=== PATIENT | male | born 2000 | race Two or more races ===

== ENCOUNTER → 2024-06-12 | Emergency (ER) | payer MEDICAID ==
[~2024-06-12] VITALS: Ht 167.6 cm; Wt 68.3 kg
[2024-06-12 16:39] VITALS: BP 122/67; PULSE 69; RESP 16; O2SAT 99
--- NOTE | 2024-06-12 18:15 | Physician Documentation ---
History of Present Illness ~ Chief Complaint: Eye Pain Stated Complaint: L EYE PAIN Time Seen by MD: 17:15 HPI Patient is seen today with complaints of pain in his left eye every states a piece of the nail or chunk of metal shot off and lodged into his left eye. Patient states it is quite painful. And irritating. Patient has no other concern or complaint at this time. Medication Reconciliation Allergies: Coded Allergies: No Known Allergies (Unverified , 06/12/24) Physical Exam Vital Signs: Temperature: 97.5, Heart Rate: 69, Respiratory Rate: 16, BP: 122/67, Pulse Oximetry: 99, Weight: 68.300 Procedures Eye Procedure Procedure Note Procedure note: Three drops of proparacaine were administered into the left eye with immediate relief of the pain. Patient maybe did have fluorescein stain applied and Wood's lamp used to appreciate corneal abrasion at the 12 o'clock position of the cornea. No foreign body appreciated at this time. Progress Results/Orders Results/Orders Orders - LICHA SILVERIO Proparacaine Ophth Solution (Alcaine Oph (06/12/24 18:10) Vital Signs 06/12/24 16:39 Temp 97.5 Pulse 69 Resp 16 B/P (MAP) 122/67 Pulse Ox 99 Medical Decision Making Findings Patient is seen today with complaints of pain in his left eye every states a piece of the nail or chunk of metal shot off and lodged into his left eye. Patient states it is quite painful. And irritating. Patient has no other concern or complaint at this time. Patient did have Wood's lamp with fluorescein stain exam performed today that did show corneal abrasion at the 12 o'clock position without foreign body present. Prescription of at neomycin polymyxin any dex ophthalmic drops pre scribed to patient to be used as indicated. Apply 2-3 drops into the left eye three to 4 times a day for seven days. Patient will return to ED with any worsening, concerning or changing symptoms. Departure Disposition: 01 HOME / SELF CARE / HOMELESS Impression: Primary Impression: Corneal abrasion Qualified Codes: S05.02XA - Injury of conjunctiva and corneal abrasion without foreign body, left eye, initial encounter Condition: Improved Discharge Instructions: Corneal Abrasion Additional Instructions: Patient did have Wood's lamp with fluorescein stain exam performed today that did show corneal abrasion at the 12 o'clock position without foreign body present. Prescription of at neomycin polymyxin any dex ophthalmic drops prescribed to patient to be used as indicated. Apply 2-3 drops into the left eye three to 4 times a day for seven days. Patient will return to ED with any worsening, concerning or changing symptoms. Referrals: NO PRIMARY CARE PROVIDER (PCP) Signature Scribe Signature: No scribe Attestation: No scribe LICHA SILVERIO PAC June 12, 2024 18:15
[2024-06-12] MEDS: proparacaine 0.5% ophthalmic drops 15ml EACHEYE ONE (18:17)
[2024-06-12] MEDS: neomy sulf/polymyx B sulf/HC 7.5ml ophthalmic suspension LEFTEYE STA (19:05)
[2024-06-12 19:07] VITALS: TEMP 97.5
== END | disposition home or self-care (01) ==
LOC: ER 16:39
DX: S05.02XA Injury of conjunctiva and corneal abrasion without foreign body, left eye, initial encounter (principal); X58.XXXA Exposure to other specified factors, initial encounter; Y93.89 Activity, other specified; Y92.89 Other specified places as the place of occurrence of the external cause; Y99.8 Other external cause status
CPT/HCPCS: 99283